=== PATIENT | male | born 1965 | race Caucasian/White ===

== ENCOUNTER 2020-04-05 07:12 | Emergency (ER) | payer BC ==
[2020-04-05] MEDS ORDERED: Acetaminophen 500 MG Tab PO ONE (07:51)
[2020-04-05] MEDS ORDERED: Lidocaine 5% 700 MG Patch TOP ONE (07:51)
[2020-04-05] MEDS ORDERED: Ibuprofen 400 MG Tab PO ONE (07:51)
--- NOTE | 2020-04-05 08:55 | CR ---
: 3 views right shoulder were obtained. Joint space narrowing seen within the acromioclavicular joint with minimal spurring. Minimal spurring noted off the inferior acromioclavicular joint. Minimal deformity within the anterior 2nd and 5th rib most likely relating to old injury or surgery. No acute fracture or other bony abnormality is seen. Impression: 1. Mild degenerative change. 2. Old rib injury. 3. Nothing acute is appreciated. Diagnostic code #2 This report was dictated in MDT
--- NOTE | 2020-04-05 09:47 | EDM.PDOC ---
ED HPI GENERAL MEDICAL PROBLEM - General Chief Complaint: Upper Extremity Injury/Pain Stated Complaint: RIGHT SHOULDER PAIN Time Seen by Provider: 04/05/20 07:15 Source of Information: Reports: Patient History Limitations: Reports: No Limitations - History of Present Illness INITIAL COMMENTS - FREE TEXT/NARRATIVE: 54-year-old male past medical history of hypertension, hyperlipidemia, diabetes mellitus presenting with right shoulder pain. 2-day history of pain to the right shoulder, worse with forward flexion of the right upper extremity. No history of any blunt trauma, pain worse with movement and better with rest, described as "aching". No joint swelling, right upper extremity numbness or weakness, neck pain, or back pain. Past medical history: Reviewed, no additional pertinent history. Surgical history: Reviewed in system, no additional pertinent history. Social history: Reviewed in system, no additional pertinent history. Family history: Reviewed in system, no additional pertinent history. PHYSICAL EXAM Vital signs reviewed. Nursing notes reviewed. Constitutional: Awake, alert, non-distressed. Head: Normocephalic, atraumatic. Eyes: EOMI, conjunctiva normal, no discharge, no scleral icterus. Ears, Nose, Throat: External ears and nose normal, moist oral mucosa. Cardiovascular: 2+ right radial pulse, capillary refill less than 2 seconds. Pulmonary: normal work of breathing, no accessory muscle use. Abdomen/GI: Soft, nontender, nondistended, no guarding or rigidity, no masses. Musculoskeletal: No deformities. Mild tenderness to palpation over the right deltoid. Full strength and range of motion of the right upper extremity. Pain elicited with pushoff test of right upper extremity. Integumentary: Appropriate color for ethnicity, warm, dry, no pallor or jaundice, no rash. Neurologic: Alert, answering questions appropriately, normal speech, no facial droop, moving all extremities well. Sensation intact to light touch in the right upper extremity. Psychiatric: Appropriate mood and affect, normal thought process. rightshoulder Pain Score (Numeric/FACES): 7 - Related Data Allergies Allergy/AdvReac Type Severity Reaction Status Date / Time codeine Allergy Other Verified 04/05/20 07:25 Home Meds: Home Meds Aspirin 81 mg PO DAILY 04/05/20 [History] Canagliflozin [Invokana] 300 mg PO DAILY 04/05/20 [History] Clopidogrel [Plavix] 75 mg PO DAILY 04/05/20 [History] Insulin Detemir [Levemir] 15 units SQ DAILY 04/05/20 [History] Losartan [Cozaar] 50 mg PO DAILY 04/05/20 [History] Metoprolol Succinate 25 mg PO BID 04/05/20 [History] Simvastatin 10 mg PO DAILY 04/05/20 [History] amLODIPine [Norvasc] 5 mg PO DAILY 04/05/20 [History] atorvaSTATin [Lipitor] 5 mg PO DAILY 04/05/20 [History] metFORMIN [Glucophage] 1,000 mg PO BID 04/05/20 [History] Past Medical History Cardiovascular History: Reports: Bypass, High Cholesterol, Hypertension Musculoskeletal History: Reports: Arthritis Endocrine/Metabolic History: Reports: Diabetes, Type II - Infectious Disease History Infectious Disease History: Reports: Chicken Pox, Mumps - Past Surgical History Other Musculoskeletal Surgeries/Procedures:: knee surgery Social & Family History - Tobacco Use Smoking Status *Q: Never Smoker - Recreational Drug Use Recreational Drug Use: No Review of Systems - Review of Systems Review Of Systems: See Below ED EXAM, GENERAL - Physical Exam Exam: See Below Course - Vital Signs Text/Narrative:: Differential: Fracture, dislocation, strain, sprain, rotator cuff tendinopathy, rotator cuff rupture, frozen shoulder. X-rays of right shoulder negative. Neurovascular intact in the right upper extremity. Suspect rotator cuff tendinitis, no weakness or loss of strength. Treated with Tylenol, Motrin, lidocaine patch with good relief. Stable to discharge home with outpatient primary care follow-up. I did offer to refer to physical therapy which the patient declined. OTC Tylenol, Motrin, lidocaine patches, heating pad. Close primary care follow-up, return to ER if worse. Last Recorded V/S: Last Vital Signs Temp 36.2 C 04/05/20 07:26 Pulse 70 04/05/20 09:56 Resp 16 04/05/20 09:56 BP 128/71 04/05/20 09:56 Pulse Ox 94 L 04/05/20 09:56 - Orders/Labs/Meds Meds: Medications Discontinued Medications Generic Name Dose Route Start Last Admin Trade Name Violette PRCeci Reason Stop Dose Admin Acetaminophen 1,000 mg 04/05/20 07:51 04/05/20 08:17 Tylenol Extra Strength PO 04/05/20 07:52 1,000 mg ONETIME ONE Administration Ibuprofen 400 mg 04/05/20 07:51 04/05/20 08:17 Motrin PO 04/05/20 07:52 400 mg ONETIME ONE Administration Lidocaine 700 mg 04/05/20 07:51 04/05/20 08:18 Lidoderm 5% TOP 04/05/20 07:52 700 mg ONETIME ONE Administration Departure - Departure Time of Disposition: 09:46 Disposition: Home, Self-Care 01 Condition: Good Clinical Impression: Rotator cuff tendonitis Qualifiers: Laterality: right Qualified Code(s): M75.81 - Other shoulder lesions, right shoulder - Discharge Information *PRESCRIPTION DRUG MONITORING PROGRAM REVIEWED*: Not Applicable *COPY OF PRESCRIPTION DRUG MONITORING REPORT IN PATIENT TITO: Not Applicable Instructions: Tendinitis, [id number] Referrals: Musa Ocampo MD [Primary Care Provider] - 2 Weeks (As needed.) Forms: ED Department Discharge Additional Instructions: Thank you for choosing the [facility] emergency department in [place] for your medical needs today. It was a pleasure caring for you. You were seen in the emergency department for right shoulder pain. I believe that you have inflammation of your rotator cuff tendons. You can take [id number] Tylenol, ibuprofen, and lidocaine patches. I also recommend a heating pad. You should follow-up with the primary doctor in the next 1 to 2 weeks if your symptoms do not improve. Please return the emergency department immediately if your symptoms worsen or if you feel worse. The following information is given to patients seen in the emergency department who are being discharged. This information is to outline your options for follow-up care. We provide all patients seen in our emergency department with a follow-up referral. The need for follow-up, as well as the timing and circumstances, are variable depending upon the specifics of your emergency department visit. If you don't have a primary care physician on staff, we will provide you with a referral. We always advise you to contact your personal physician following an emergency department visit to inform them of the circumstance of the visit and for follow-up with them and/or the need for any referrals to a consulting sp ecialist. The emergency department will also refer you to a specialist when appropriate. This referral assures that you have the opportunity for follow-up care with a specialist. All of these measure are taken in an effort to provide you with optimal care, which includes your follow-up. Under all circumstances we always encourage you to contact your private physician who remains a resource for coordinating your care. When calling for follow-up care, please make the office aware that this follow-up is from your recent emergency room visit. If for any reason you are refused follow-up, please contact the Emergency Department at and asked to speak to the emergency department charge nurse. If you do not have a primary care physician that is caring for you, you can contact these clinics below to set up an appointment to establish care: [facility] - Primary [facility] [address] [place] [address] [facility] [address] [place] [id number] Sepsis Event Note (ED) - Evaluation Sepsis Screening Result: No Definite Risk - Focused Exam Vital Signs: Vital Signs Temp Pulse Resp BP Pulse Ox 04/05/20 09:56 70 16 128/71 94 L 04/05/20 07:26 36.2 C 83 18 160/76 H 95
== END 2020-04-05 09:56 | disposition home or self-care (01) ==
LOC: MW.ED 07:12
DX: M75.81 Other shoulder lesions, right shoulder (principal); I10 Essential (primary) hypertension; E78.5 Hyperlipidemia, unspecified; E78.00 Pure hypercholesterolemia, unspecified; M19.90 Unspecified osteoarthritis, unspecified site; E11.9 Type 2 diabetes mellitus without complications; Z79.82 Long term (current) use of aspirin; Z79.4 Long term (current) use of insulin; Z79.02 Long term (current) use of antithrombotics/antiplatelets; Z79.899 Other long term (current) drug therapy; Z88.5 Allergy status to narcotic agent
CPT/HCPCS: 73030; 99283; A9270